=== PATIENT | female | born 1990 | race Caucasian/White ===

== ENCOUNTER 2022-02-10 19:31 | Emergency (ER) | payer OTHER, SELFPAY ==
[2022-02-10 19:37] VITALS: BP 127/86; PULSE 98; RESP 16; TEMP 36.6; O2SAT 99
--- NOTE | 2022-02-10 19:39 | ED.URI ---
HPI - URI/Sore Throat General Chief Complaint: Upper Respiratory Infection Stated Complaint: SINUS CONGESTION Time Seen by Provider: 02/10/22 19:39 Source: patient and RN notes reviewed Mode of arrival: ambulatory Limitations: no limitations History of Present Illness HPI Narrative: 31 y/o female presented for c/o sinus pressure, congestion, bilateral ear pain worsening x3 days. Taking otc meds for symptoms along with daily Zyrtec. Denies cough, sob, wheezing, tinnitus, f/c. Took negative home Covid test. She is boosted for covid. Denies sick contacts. MD elicited complaint: nasal congestion Related Data Allergies Allergy/AdvReac Type Severity Reaction Status Date / Time No Known Allergies Allergy Mild Verified 02/10/22 19:41 Review of Systems Review of Systems: CONSTITUTIONAL: Endorses malaise,denies chills, sweats, fever EYES: Denies visual changes, redness, or discharge ENT: Reports rhinorrhea, congestion, sinus pain, otalgia CARDIOVASCULAR: Denies chest pain, palpitations, edema RESPIRATORY: Reports cough, post nasal drainage. 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 TMs pearly lujan with dull light reflex and fluid bilaterally, Left canal erythematous; no tragal tenderness. Oropharynx erythematous without lesions or exudate, no drooling, no hoarseness, no trismus, uvula midline. NECK: Supple. No lymphadenopathy CHEST: Clear to auscultation, breath sounds equal. No wheezing, rhonchi, rales, or stridor. No respiratory distress, speaks in full sentences. HEART: Regular rate and rhythm. No murmur heard. SKIN: Warm, dry, no rash. NEURO: Alert and oriented x3. PSYCH: Normal mood and affect Course Course Emergency Course: Patient is aware of diagnosis, understands and agrees to treatment plan. Anticipatory guidance given. Patient agrees to follow-up as directed and is aware of reasons to seek care at the emergency department. Portions of this record may have been created with voice recognition software Level of Care: Express Care Visit Vital Signs Vital signs: Vital Signs Temperature 97.8 F 02/10/22 19:37 Pulse Rate 98 02/10/22 19:37 Respiratory Rate 16 02/10/22 19:37 Blood Pressure 127/86 02/10/22 19:37 Pulse Oximetry 99 02/10/22 19:37 Temperature 97.8 F 02/10/22 19:37 Pulse Rate 98 02/10/22 19:37 Respiratory Rate 16 02/10/22 19:37 Blood Pressure 127/86 02/10/22 19:37 Pulse Oximetry 99 02/10/22 19:37 reviewed MDM - URI/Sore Throat MDM Narrative Medical decision making narrative: Sx c/w URI. She is advised to continue supportive treatment. Abx available should sx progress x10 days. She is appropriate for outpt treatment and f/u . Differential Diagnosis Differential diagnosis: Likely upper respiratory infection, sinusitis and viral infection Discharge Plan Discharge Clinical Impression: Upper respiratory infection Qualifiers: URI type: unspecified URI Qualified Code(s): J06.9 - Acute upper respiratory infection, unspecified Patient Disposition: Home, Self-Care Condition: Stable
== END 2022-02-10 19:48 | disposition home or self-care (01) ==
PROVIDERS: Emergency Provider Nurse Practitioner Family; PCP Family Medicine
DX: J06.9 Acute upper respiratory infection, unspecified (principal)
CPT/HCPCS: 99213; G0463

== ENCOUNTER 2023-03-17 11:20 | Outpatient (CLI) | payer OTHER, SELFPAY ==
[2023-03-17 13:16] LABS: Alanine Aminotransferase 29 U/L (6-35); Albumin Level 4.5 g/dL (3.5-5.1); Alkaline Phosphatase 64 U/L (38-126); Anion Gap 8 mmol/L (8-16); Aspartate Amino Transferase 33 U/L (14-36); Bilirubin,Total 1.1 mg/dL (0.2-1.3); Blood Urea Nitrogen 13 mg/dL (7-17); Calcium 10.1 mg/dL (8.4-10.2); Carbon Dioxide 27 mmol/L (22-30); Chloride 104 mmol/L (98-107); Cholesterol 135 mg/dL (0-200); Estimated Glomerular Filt Rate > 60; Glucose 91 mg/dL (65-110); HDL Direct 46 mg/dL; Potassium 4.3 mmol/L (3.4-5.0); Sodium 139 mmol/L (137-145); Triglycerides 133 mg/dL (<150)
[2023-03-17 13:29] LABS: LDL Cholesterol Direct 60 mg/dL
[2023-03-17 13:49] LABS: Thyroid Stimulating Hormone 0.981 uIU/mL (0.465-4.680)
[2023-03-17 21:52] LABS: Hemoglobin A1C 4.7 % (<5.7)
== END 2023-03-17 11:21 | disposition home or self-care (01) ==
LOC: ANHGOSHLAB 11:21
PROVIDERS: PCP Family Medicine; Visit Provider Family Medicine
DX: E66.3 Overweight (principal)
CPT/HCPCS: 36415; 80053; 80061; 83036; 84443